=== PATIENT | female | born 1970 | race Caucasian/White ===

== ENCOUNTER 2016-06-04 16:04 | Emergency (ER) | payer SELFPAY ==
[2016-06-04 16:14] VITALS: O2SAT 98
[2016-06-04] MEDS ORDERED: NS 1,000 ML IV ONE (16:28)
--- NOTE | 2016-06-04 16:29 | EDPHY ---
H & P Stated Complaint: right flank pain "feels like kidney stone" HPI/ROS: HPI CHIEF COMPLAINT: Abdominal pain, right flank pain HISTORY OF PRESENT ILLNESS: This patient is a very pleasant 45-year-old female presents emergency room with urinary frequency and right side pain. Patient tells me that she thinks she has a kidney fashion. She had a kidney infection in the past With very similar symptoms. She has not had any fever chills or vomiting. Complains of a dull ache right flank and right side. Urinary frequency does not endorse urinary dysuria. Denies significant abdominal pain pain. Past Medical History: Pulmonary embolism, UTI, pyelonephritis Past Surgical History: bowel resection, SBO, sphincter of Oddi dysfunction with surgery, cholecystectomy, appendectomy Social History: Smokes tobacco daily, denies daily alcohol use of drugs. Family History: Noncontributory ROS REVIEW OF SYSTEMS: A comprehensive 10 point review of systems is otherwise negative aside from elements mentioned in the history of present illness. Exam Constitutional triage nursing summary reviewed, vital signs reviewed, awake/ alert. Eyes normal conjunctivae and sclera, EOMI, PERRLA. HENT normal inspection, atraumatic, moist mucus membranes, no epistaxis, neck supple/ no meningismus, no raccoon eyes. Respiratory clear to auscultation bilaterally, normal breath sounds, no respiratory distress, no wheezing. Cardiovascular rate normal, regular rhythm, no murmur, no edema, distal pulses normal. Gastrointestinal soft, non-tender, no rebound, no guarding, normal bowel sounds, no distension, no pulsatile mass. Genitourinary no CVA tenderness Musculoskeletal no midline vertebral tenderness, full range of motion, no calf swelling, no tenderness of extremities, no meningismus, good pulses, neurovascularly intact. Skin pink, warm, & dry, no rash, skin atraumatic. Neurologic awake, alert and oriented x 3, AAOx3, moves all 4 extremities equally, motor intact, sensory intact, CN II-XII intact, normal cerebellar, normal vision, normal speech. Psychiatric normal mood/affect. Heme/Lymph/Immune no lymphadenopathy. Differential Diagnosis: Includes but is not limited to in a particular order, urinary tract infection, pyelonephritis, kidney stone, colitis, diverticulitis, bowel obstruction, ileus Medical Decision Making: plan for this patient is to have an IV established obtain a urinalysis, hydrated with IV fluids, she declined pain medicine here in the emergency room. May need to perform a CT scan as she has right-sided abdominal pain if her urinalysis unrevealing. Re-evaluation: CT scan of the abdomen pelvis with IV contrast. The results of the study are negative for acute inflammatory process specifically no evidence of pyelonephritis, colitis, normal bowel gas pattern. The study was read by Dr. Stock. I viewed the images myself on the PACS system. [id number]: re-evaluation at this time: patient is resting comfortably. CT scan is reassuring blood work reassuring urinalysis shows 2+ bacteria. Patient received Rocephin 1 g here in the emergency room. Urine culture has been sent. I prescribed patient peridium and Keflex however she understands return to the ER she develops worsening symptoms includes worsening abdominal pain, fever , vomiting. Source: Patient - Personal History LMP (Females 10-55): Hysterectomy Current Tetanus/Diphtheria Vaccine: Unsure Current Tetanus Diphtheria and Acellular Pertussis (TDAP): Unsure Tetanus Vaccine Date: unsure - Medical/Surgical History Hx Asthma: No Hx Chronic Respiratory Disease: No Hx Diabetes: No Hx Cardiac Disease: No Hx Renal Disease: No Hx Cirrhosis: No Hx Alcoholism: No Hx HIV/AIDS: No Hx Splenectomy or Spleen Trauma: No Other PMH: bowel obstruction, PE, sepsis, hao,appy, laparoscopies with complications, colon resection, ablation - Social History Smoking Status: Current every day smoker Constitutional: Initial Vital Signs Temperature (C) 36.8 C 06/04/16 16:11 Heart Rate 87 06/04/16 16:11 Respiratory Rate 16 06/04/16 16:11 Blood Pressure 137/100 H 06/04/16 16:11 O2 Sat (%) 98 06/04/16 16:11 O2 Delivery Mode Room Air Allergies/Adverse Reactions: No Known Allergies Allergy (Verified 11/04/15 22:05) Home Medications: Medication Instructions Recorded Hydrocodone/APAP 5/325 [[place] 1 - 2 tab PO Q4PRN PRN #18 tab 11/04/15 5/325 (*)] Zantac PRN 11/04/15 Cephalexin [Keflex] 500 mg PO Q6H #28 cap 06/04/16 Phenazopyridine HCl [Pyridium] 200 mg PO TID #7 tab 06/04/16 Medical Decision Making - Data Points Laboratory Results: Laboratory Results 06/04/16 16:38 06/04/16 16:38 06/04/16 06/04/16 06/04/16 16:38 16:38 16:38 WBC 9.59 10^3/uL H 10^3/uL (3.80-9.50) RBC 5.11 10^6/uL 10^6/uL (4.18-5.33) Hgb 15.9 g/dL g/dL (12.6-16.3) Hct 46.1 % % (38.0-47.0) MCV 90.2 fL fL (81.5-99.8) MCH 31.1 pg pg (27.9-34.1) MCHC 34.5 g/dL g/dL (32.4-36.7) RDW 12.4 % % (11.5-15.2) Plt Count 341 10^3/uL 10^3/uL (150-400) MPV 9.5 fL fL (8.7-11.7) Neut % (Auto) 69.1 % % (39.3-74.2) Lymph % (Auto) 23.4 % % (15.0-45.0) [place] % (Auto) 4.3 % L % (4.5-13.0) Eos % (Auto) 2.5 % % (0.6-7.6) Baso % (Auto) 0.3 % % (0.3-1.7) Nucleat RBC Rel Count 0.0 % % (0.0-0.2) Absolute Neuts (auto) 6.63 10^3/uL H 10^3/uL (1.70-6.50) Absolute Lymphs (auto) 2.24 10^3/uL 10^3/uL (1.00-3.00) Absolute Monos (auto) 0.41 10^3/uL 10^3/uL (0.30-0.80) Absolute Eos (auto) 0.24 10^3/uL 10^3/uL (0.03-0.40) Absolute Basos (auto) 0.03 10^3/uL 10^3/uL (0.02-0.10) Absolute Nucleated RBC 0.00 10^3/uL 10^3/uL (0-0.01) Immature Gran % 0.4 % % (0.0-1.1) Immature Gran # 0.04 10^3/uL 10^3/uL (0.00-0.10) Sodium 141 mEq/L mEq/L (134-144) Potassium 4.2 mEq/L mEq/L (3.5-5.2) Chloride 104 mEq/L mEq/L (97-110) Carbon Dioxide 24 mEq/l mEq/l (22-31) Anion Gap 13 mEq/L mEq/L (8-16) BUN 8 mg/dL mg/dL (7-23) Creatinine 0.6 mg/dL mg/dL (0.6-1.0) Estimated GFR > 60 Glucose 78 mg/dL mg/dL (70-100) Calcium 10.2 mg/dL mg/dL (8.5-10.4) Total Bilirubin 0.6 mg/dL mg/dL (0.1-1.4) Conjugated Bilirubin 0.4 mg/dL mg/dL (0.0-0.5) Unconjugated Bilirubin 0.2 mg/dL mg/dL (0.0-1.1) AST 41 IU/L IU/L (14-46) ALT 55 IU/L H IU/L (9-52) Alkaline Phosphatase 106 IU/L IU/L (38-126) Total Protein 7.7 g/dL g/dL (6.3-8.2) Albumin 4.9 g/dL g/dL (3.5-5.0) Lipase 155.0 IU/L IU/L (23-300) Beta HCG, Qual NEGATIVE Urine Color Urine Appearance Urine pH Ur Specific Nucla Urine Protein Urine Ketones Urine Blood Urine Nitrate Urine Bilirubin Urine Urobilinogen Ur Leukocyte Esterase Urine RBC Urine WBC Ur Epithelial Cells Urine Bacteria Ur Culture Indicated? Urine Glucose 06/04/16 16:20 WBC RBC Hgb Hct MCV MCH MCHC RDW Plt Count MPV Neut % (Auto) Lymph % (Auto) [place] % (Auto) Eos % (Auto) Baso % (Auto) Nucleat RBC Rel Count Absolute Neuts (auto) Absolute Lymphs (auto) Absolute Monos (auto) Absolute Eos (auto) Absolute Basos (auto) Absolute Nucleated RBC Immature Gran % Immature Gran # Sodium Potassium Chloride Carbon Dioxide Anion Gap BUN Creatinine Estimated GFR Glucose Calcium Total Bilirubin Conjugated Bilirubin Unconjugated Bilirubin AST ALT Alkaline Phosphatase Total Protein Albumin Lipase Beta HCG, Qual Urine Color COLORLESS Urine Appearance CLEAR Urine pH 6.0 (5.0-7.5) Ur Specific Nucla 1.002 (1.002-1.030) Urine Protein NEGATIVE (NEGATIVE) Urine Ketones NEGATIVE (NEGATIVE) Urine Blood 1+ H (NEGATIVE) Urine Nitrate NEGATIVE (NEGATIVE) Urine Bilirubin NEGATIVE (NEGATIVE) Urine Urobilinogen NEGATIVE EU EU (0.2-1.0) Ur Leukocyte Esterase NEGATIVE (NEGATIVE) Urine RBC 1-3 /hpf /hpf (0-3) Urine WBC 1-3 /hpf /hpf (0-3) Ur Epithelial Cells 1+ /lpf /lpf (NONE-1+) Urine Bacteria 2+ /hpf H /hpf (NONE SEEN) Ur Culture Indicated? NOT INDICATED (NI) Urine Glucose NEGATIVE (NEGATIVE) Medications Given: Discontinued Medications Sodium Chloride (Ns) 1,000 mls @ 0 mls/hr IV ONCE ONE PRN Reason: Wide Open Stop: 06/04/16 16:29 Last Admin: 06/04/16 16:46 Dose: 1,000 mls Ceftriaxone Sodium/Dextrose (Rocephin 1 Gm (Premix)) 50 mls @ 100 mls/hr IV EDNOW ONE PRN Reason: Protocol Stop: 06/04/16 17:26 Last Admin: 06/04/16 17:09 Dose: 50 mls Departure - Departure Disposition: Home, Routine, Self-Care Clinical Impression: Urinary tract infection Qualifiers: Urinary tract infection type: acute cystitis Hematuria presence: without hematuria Qualified Code(s): N30.00 - Acute cystitis without hematuria Condition: Good Instructions: Dysuria (ED), Urinary Tract Infection in Women (ED) Additional Instructions: 1. Drink lots of fluids stay well-hydrated. 2. Take antibiotics as prescribed. 3. return to the emergency room if develops worsening symptoms includes worsening abdominal pain, fever, vomiting. Referrals: MARIVEL WHITE [Primary Care Provider] - As per Instructions Prescriptions: Cephalexin [Keflex] 500 mg PO Q6H #28 cap Phenazopyridine HCl [Pyridium] 200 mg PO TID #7 tab
[2016-06-04 16:41] LABS: COLOR COLORLESS; LEUKOCYTE ESTERASE,URINE NEGATIVE (NEGATIVE); NITRITE,URINE NEGATIVE (NEGATIVE)
[2016-06-04 16:44] LABS: BACTERIA 2+ /hpf (NONE SEEN)
[2016-06-04 16:54] LABS: % IMMATURE GRANULYOCYTES 0.4 % (0.0-1.1); ABSOLUTE IMMATURE GRANULOCYTES 0.04 10^3/uL (0.00-0.10); ADD DIFF? NO; ADD MORPH? NO; ADD SCAN? NO; ATYPICAL LYMPHOCYTE FLAG 10 (0-99); FRAGMENT RBC FLAG 0 (0-99); HEMATOCRIT 46.1 % (38.0-47.0); HEMOGLOBIN 15.9 g/dL (12.6-16.3); LEFT SHIFT FLG 0 (0-99); LIPEMIA HEMOLYSIS FLAG 90 (0-99); MEAN CELL HEMOGLOBIN 31.1 pg (27.9-34.1); MEAN CELL HEMOGLOBIN CONCENTR. 34.5 g/dL (32.4-36.7); MEAN CELL VOLUME 90.2 fL (81.5-99.8); MEAN PLATELET VOLUME 9.5 fL (8.7-11.7); PLATELET CLUMPS FLAG 10 (0-99); PLATELET COUNT 341 10^3/uL (150-400); RED BLOOD CELL COUNT 5.11 10^6/uL (4.18-5.33); RED CELL DISTRIBUTION WIDTH 12.4 % (11.5-15.2)
[2016-06-04 17:09] LABS: ALANINE AMINOTRANSFERASE 55 IU/L (9-52); ALBUMIN 4.9 g/dL (3.5-5.0); ALKALINE PHOSPHATASE 106 IU/L (38-126); ANION GAP 13 mEq/L (8-16); ASPARTATE AMINOTRANSFERASE 41 IU/L (14-46); BILIRUBIN,TOTAL 0.6 mg/dL (0.1-1.4); BILIRUBIN-CONJUGATED 0.4 mg/dL (0.0-0.5); BILIRUBIN-UNCONJUGATED 0.2 mg/dL (0.0-1.1); CALCIUM 10.2 mg/dL (8.5-10.4); CARBON DIOXIDE 24 mEq/l (22-31); CHLORIDE 104 mEq/L (97-110); CREATININE 0.6 mg/dL (0.6-1.0); GLOMERULAR FILTRATION RATE > 60; GLUCOSE 78 mg/dL (70-100); POTASSIUM 4.2 mEq/L (3.5-5.2); SODIUM 141 mEq/L (134-144); TOTAL PROTEIN 7.7 g/dL (6.3-8.2)
[2016-06-04] MEDS ORDERED: IOPAMIDOL (ISOVUE-300) 100 ML BTL IV ONE (17:12)
[2016-06-04 17:57] VITALS: BP 119/69; PULSE 78; RESP 17; TEMP 99.9
== END 2016-06-04 17:56 | disposition home or self-care (01) ==
DX: N30.00 Acute cystitis without hematuria (principal); B96.89 Other specified bacterial agents as the cause of diseases classified elsewhere; F17.200 Nicotine dependence, unspecified, uncomplicated; Z90.710 Acquired absence of both cervix and uterus
CPT/HCPCS: 96365; J0696; Q9967